=== PATIENT | male | born 1995 | race Caucasian/White ===

== ENCOUNTER 2020-01-13 21:22 | Emergency (ER) | payer SELFPAY ==
[2020-01-13 21:25] VITALS: BP 116/74; PULSE 69; RESP 18; TEMP 36.8; O2SAT 98; BMI 21.4
--- NOTE | 2020-01-13 21:31 | ECG_ITS ---
Measurements Intervals [place] Rate: 80 P: 62 OR: 174 QRS: 83 QRSD: 99 T: 58 QT: 384 QTc: 446 SINUS RHYTHM Compared to ECG 02/15/2017 18:16:36 No significant changes Electronically Signed On 01-14-2020 20:20:58 CDT by Sandie Irby M.D. [email or web address]
--- NOTE | 2020-01-13 21:32 | W.ED.ALCOHOL ---
HPI - Alcohol General: Chief Complaint: Alcohol Stated Complaint: etoh Time Seen by Provider: 01/13/20 21:23 Source: patient and EMS Mode of arrival: EMS Limitations: altered mental status (intoxicated) History of Present Illness: HPI narrative: Patient is a 24-year-old male who presents to ED today after being brought by EMS due to intoxication. In addition they state patient took 3 Xanax tablets. Patient is not sure who called EMS or why. He is clearly intoxicated on examination. Patient states he is not suicidal or homicidal. He is requesting to go home. 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 Amount of alcohol consumed: reports two 1/5 bottles of fireball Chronic alcohol use: No Previous visits for alcohol intoxication: No Recent trauma: No Associated symptoms: Reports no associated symptoms Treatments prior to arrival: none Review of Systems General: Reports: ROS unobtainable due to medical condition (intoxicated) FORMERLY [facility], [facility] ED PFSH: Social History Smoking and tobacco status: never smoked Physical Exam Const: COMMON NORMALS: patient oriented x3 and alert ORIENTATION/CONSCIOUSNESS: Yes oriented to person, Yes oriented to place and Yes oriented to time Resp: COMMON NORMALS: normal respiratory effort and clear to auscultation bilaterally AUSCULTATION: clear to auscultation bilaterally Cardio: COMMON NORMALS: regular rate and regular rhythm RATE: regular rate RHYTHM: regular rhythm Neuro: COMMON NORMALS: patient oriented x3 and moves all extremities SENSORIUM/ORIENTATION: Yes alert, Yes oriented to person, Yes oriented to place and Yes oriented to time OTHER: slurred speech secondary to intoxication Psych: COMMON NORMALS: denies hallucinations, denies homicidal ideation and denies suicidal ideation Skin: COMMON NORMALS: no rashes or lesions noted GENERAL SKIN EXAM: no rashes or lesions noted Course ED course: Patient is becoming increasingly belligerent-screaming and cussing at staff. Geodon was ordered on patient. Vital Signs: Vital signs: Vital Signs Temperature 98.2 F 01/13/20 21:25 Pulse Rate 69 01/13/20 21:25 Respiratory Rate 18 01/13/20 21:25 Blood Pressure 116/74 01/13/20 21:25 Pulse Oximetry 98 01/13/20 21:25 MDM - Alcohol MDM Narrative: Medical decision making narrative: Patient is not suicidal or homicidal. He is simply intoxicated. His tox screen is positive for marijuana which he admits to. At this time patient is resting comfortably/sleeping. He is stable for discharge whenever we can find a safe ride for him home. Lab Data: Labs: Lab Results 01/13/20 01/13/20 01/13/20 Range/Units 21:20 21:20 22:10 WBC 10.3 H (4.0-10.0) 10^3/ uL RBC 4.89 (4.1-5.3) 10^6/u L Hgb 15.0 (11.7-16.6) g/dL Hct 44.7 (42.0-52.0) % MCV 91.4 (80-94) fL MCH 30.7 (28.0-34.0) pg MCHC 33.6 (30.0-36.0) g/dL RDW 12.1 (12.1-15.1) % Plt Count 270 (130-400) 10^3/c mm MPV 11.2 H (7.4-10.4) fL Neut % (Auto) 54.0 % Lymph % (Auto) 37.5 % [place] % (Auto) 7.0 % Eos % (Auto) 0.7 % Baso % (Auto) 0.4 % Neut # (Auto) 5.6 (1.8-7.7) 10^3/u L Lymph # (Auto) 3.9 (0.8-4.8) 10^3/u L [place] # (Auto) 0.7 (0.2-0.9) 10^3/u L Eos # (Auto) 0.1 (0.0-0.8) 10^3/u L Baso # (Auto) 0.0 (0.0-0.1) 10^3/u L Nucleated RBC % (a uto) 0 % Nucleated RBCs # 0.0 /100WBC Sodium 147 H (136-145) mmol/L Potassium 3.8 (3.5-5.1) mmol/L Chloride 106 (98-107) mmol/L Carbon Dioxide 25 (22-29) mmol/L Anion Gap 19.8 H (5-19) BUN 10 (6-20) mg/dL Creatinine 1.0 (0.7-1.2) mg/dL GFR Calculation 92.6 (90-130) mL/min Glucose 107 (65-115) mg/dL Calculated Osmolal ity 300 H (285-295) mOsm/k g Calcium 9.7 (8.5-10.5) mg/dL Total Bilirubin 0.2 (0.15-1.2) mg/dL AST 20 (0-40) U/L ALT 23 (0-41) U/L Alkaline Phosphata se 51 (40-130) IU/L Total Protein 7.0 (6.6-8.7) g/dL Albumin 4.7 (3.5-5.2) g/dL Globulin 2.3 (1.3-4.6) g/dL Salicylates < 0.3 L (3-10) mg/dL Urine Opiates Scre en Negative (Negative) ng/mL Acetaminophen < 5.0 L (10-30) ug/mL Ur Barbiturates Sc reen Negative (Negative) ng/mL Ur Phencyclidine S crn Negative (Negative) ng/mL Ur Amphetamines Sc reen Negative (Negative) ng/mL U Benzodiazepines Scrn Negative (Negative) ng/mL Urine Cocaine Scre en Negative (Negative) ng/mL U Marijuana (THC) Screen Positive H (Negative) ng/mL Ethyl Alcohol 247 H (0-10) mg/dL EKG Data^: EKG 1: EKG interpretation date: 01/13/20 EKG interpretation time: 23:36 Interpretation: Sinus rhythm Rate [address] elevation or depression changes noted Discharge Plan Discharge Patient Disposition: Home, Self-Care Clinical Impression: Alcoholic intoxication Qualifiers: Complication of substance-induced condition: uncomplicated Qualified Code(s): F10.920 - Alcohol use, unspecified with intoxication, uncomplicated Condition: Stable Discharge Orders: Discharge Order (Routine); Ordered 01/14/20 Ordered By: Sheryl Doshi Patient Instructions: Alcohol Intoxication (ED), Abuse of Alcohol (ED) Coding Level of Care Code ED Blood Bank Coordinator for g Fwd Exam Detailed
[2020-01-13 21:39] LABS: Basophils % 0.4 %; Eosinophils # 0.1 10^3/uL (0.0-0.8); Eosinophils % 0.7 %; Hematocrit 44.7 % (42.0-52.0); Lymphocytes # 3.9 10^3/uL (0.8-4.8); Lymphocytes % 37.5 %; Mean Corpuscular HGB Conc 33.6 g/dL (30.0-36.0); Mean Corpuscular Hemoglobin 30.7 pg (28.0-34.0); Mean Corpuscular Volume 91.4 fL (80-94); Mean Platelet Volume 11.2 fL (7.4-10.4); Monocytes # 0.7 10^3/uL (0.2-0.9); Neutrophils # 5.6 10^3/uL (1.8-7.7); Nucleated Red Blood Cells % 0 %; Platelet Count 270 10^3/cmm (130-400); Red Blood Count 4.89 10^6/uL (4.1-5.3); Red Cell Distribution Width 12.1 % (12.1-15.1); White Blood Count 10.3 10^3/uL (4.0-10.0)
--- NOTE | 2020-01-13 21:48 | PC.NURSE ---
Pharmacy notified of new orders.
[2020-01-13 22:00] LABS: Alanine Aminotransferase 23 U/L (0-41); Albumin Level 4.7 g/dL (3.5-5.2); Alcohol Level 247 mg/dL (0-10); Alkaline Phosphatase 51 IU/L (40-130); Anion Gap 19.8 (5-19); Aspartate Amino Transferase 20 U/L (0-40); Blood Urea Nitrogen 10 mg/dL (6-20); Calcium 9.7 mg/dL (8.5-10.5); Carbon Dioxide 25 mmol/L (22-29); Chloride 106 mmol/L (98-107); Globulin 2.3 g/dL (1.3-4.6); Glomerular Filtration Rate 92.6 mL/min (90-130); Glucose 107 mg/dL (65-115); Osmolality Calculated 300 mOsm/kg (285-295); Potassium 3.8 mmol/L (3.5-5.1); Sodium 147 mmol/L (136-145); Total Bilirubin 0.2 mg/dL (0.15-1.2)
[2020-01-13 22:06] LABS: Acetaminophen < 5.0 ug/mL (10-30); Salicylate < 0.3 mg/dL (3-10)
[2020-01-13] MEDS: ziprasidone 20 mg/mL SDV 10 MG IM (22:09)
[2020-01-13 22:32] LABS: Amphetamines Screen Urine Negative (Negative); Barbiturates Screen Urine Negative (Negative); Benzodiazepines Screen Urine Negative (Negative); Cocaine Screen Urine Negative (Negative); Opiate Screen Urine Negative (Negative); PCP Screen Urine Negative (Negative); THC Screen Urine Positive (Negative)
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
[2020-01-13] MEDS: folic acid 1 MG, multivitamin inj 10 ML, thiamine 100 MG in sodium chloride 0.9% 1,000 ML 252.8 MG IV (23:37)
--- NOTE | 2020-01-14 00:38 | PC.NURSE ---
Patient continuing to rest at present time. IV infusing without difficulty.
[2020-01-14 01:12] VITALS: BP 110/60; PULSE 67; RESP 16; TEMP 36.6; O2SAT 95
== END 2020-01-14 01:14 | disposition home or self-care (01) ==
PROVIDERS: Emergency Provider Physician Assistant
DX: F10.920 Alcohol use, unspecified with intoxication, uncomplicated (principal)
CPT/HCPCS: 12345; 80053; 80306; 80307; 85025; 93005; 96365; 96366; 96372; 99283; 99284; J3411; J3486; J3490; J7030

== ENCOUNTER 2020-03-19 18:55 | Inpatient (IN) | payer SELFPAY ==
--- NOTE | 2020-03-19 18:58 | PC.NURSE ---
WHILE AT BEDSIDE PT KICKING AT STAFF AND GRABBING AT STAFF. PT IS UNCOOPERATIVE VERBAL DEESCALATION ATTEMPTED PT IS STILL UNCOOPERATIVE AND COMBATIVE. DR. MORFIN AT BEDSIDE VO WITH READ BACK FROM DR. MORFIN TO ADM 40MG IV KETAMINE PER EMS. EMS THEN ADM 40 MG IV KETAMINE TO PT.
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
[2020-03-19 19:08] VITALS: BP 144/94; PULSE 90; RESP 14; TEMP 37.1; O2SAT 100; BMI 22.9
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
[2020-03-19 19:20] LABS: Basophils % 0.3 %; Eosinophils # 0.2 10^3/uL (0.0-0.8); Hematocrit 45.9 % (42.0-52.0); Hemoglobin 15.7 g/dL (11.7-16.6); Lymphocytes # 1.9 10^3/uL (0.8-4.8); Lymphocytes % 19.1 %; Mean Corpuscular HGB Conc 34.2 g/dL (30.0-36.0); Mean Corpuscular Hemoglobin 31.5 pg (28.0-34.0); Mean Corpuscular Volume 92.2 fL (80-94); Mean Platelet Volume 10.6 fL (7.4-10.4); Monocytes # 0.6 10^3/uL (0.2-0.9); Monocytes % 6.2 %; Neutrophils # 7.03 10^3/uL (1.8-7.7); Neutrophils % 72.2 %; Nucleated Red Blood Cells % 0 %; Platelet Count 266 10^3/cmm (130-400); Red Blood Count 4.98 10^6/uL (4.1-5.3); Red Cell Distribution Width 12.8 % (12.1-15.1); White Blood Count 9.7 10^3/uL (4.0-10.0)
[2020-03-19 19:55] VITALS: BP 121/75; PULSE 87; RESP 12; O2SAT 100
[2020-03-19 19:55] LABS: Alanine Aminotransferase 29 U/L (0-41); Alcohol Level 267 mg/dL (0-10); Alkaline Phosphatase 72 IU/L (40-130); Anion Gap 21.4 (5-19); Aspartate Amino Transferase 40 U/L (0-40); Blood Urea Nitrogen 9 mg/dL (6-20); Calcium 9.5 mg/dL (8.5-10.5); Carbon Dioxide 22 mmol/L (22-29); Chloride 104 mmol/L (98-107); Globulin 2.1 g/dL (1.3-4.6); Glomerular Filtration Rate 104.6 mL/min (90-130); Glucose 116 mg/dL (65-115); Osmolality Calculated 295 mOsm/kg (285-295); Potassium 3.4 mmol/L (3.5-5.1); Sodium 144 mmol/L (136-145); Thyroid Stimulating Hormone 0.99 uIU/mL (0.27-4.20); Total Bilirubin 0.3 mg/dL (0.15-1.2); Total Protein 7.1 g/dL (6.6-8.7)
--- NOTE | 2020-03-19 19:56 | PC.NURSE ---
LEFT FOREARM WOUND DRESSED WITH 4X4 AND TELFA AND COBAN PRESSURE BANDAGE. PER DR. TURPIN'S VO.
--- NOTE | 2020-03-19 19:59 | PC.NURSE ---
IN AND OUT ROLLE USED TO OBTAIN URINE SPECIMEN VO RECEIVED FROM DR. TURPIN.
--- NOTE | 2020-03-19 20:02 | PC.NURSE ---
PER DR. GREENBERG VO PC TO PT MOTHER AND CONTACT DORA WADSWORTH. NO ANSWER LEFT MESSAGE TO RETURN PC TO THE ER.
[2020-03-19] MEDS: tetanus-dipt-pertussis 0.5 mL SDV IM (20:20)
[2020-03-19 20:21] LABS: Amphetamines Screen Urine Positive (Negative); Barbiturates Screen Urine Negative (Negative); Benzodiazepines Screen Urine Negative (Negative); Cocaine Screen Urine Negative (Negative); Opiate Screen Urine Negative (Negative); PCP Screen Urine Negative (Negative); THC Screen Urine Positive (Negative)
--- NOTE | 2020-03-19 20:58 | PC.NURSE ---
WHILE AT BESIDE PT IS YELLING HELL RIGHT, FUCK YEAH . PT IS ATTEMPTING TO GET OUT OF BED. VERBAL DEESCALATION ATTEMPTED PT WILL NOT FOLLOW DIRECTIONS.DR. TURPIN AT BEDSIDE VO WITH READ BACK TO ADM 40MG OF IV KETAMINE
[2020-03-19 21:03] VITALS: BP 149/90; PULSE 87; RESP 16; O2SAT 100
[2020-03-19 21:36] VITALS: PULSE 76; RESP 14; O2SAT 99
--- NOTE | 2020-03-19 22:04 | PC.NURSE ---
PROVIDER BETHANY SUTURING PT AT BEDSIDE.
[2020-03-19] MEDS: LORazepam 2 mg/mL INJ 1 mL 1 MG IVP (22:56)
--- NOTE | 2020-03-19 23:09 | PC.NURSE ---
Patient needs to Follow-Up with Dr. Brian at [facility] in [facility] ([phone]) as outpatient for his forearm injury after patient is discharged from our facility.
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
--- NOTE | 2020-03-19 23:20 | PC.NURSE ---
REPORT GIVEN TO CORINNA HINDS ASSUMED CARE.
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
[2020-03-20] VITALS (21 sets, daily range): BP systolic 101–142; BP diastolic 41–76; PULSE 67–114; RESP 15–22; TEMP 37.3–37.4; O2SAT 94–100
[2020-03-20] MEDS: ziprasidone 20 mg/mL SDV 40 MG IM (00:20)
[2020-03-20] MEDS: dexmedetomidine 400 MCG in sodium chloride 0.9% (100 ml) 100 ML IV (01:35)
--- NOTE | 2020-03-20 01:53 | PC.NURSE ---
Admit Note Patient arrived via ER bed with ER staff and security. x4 person assist into ICU bed. Vitals obtained. See assessment. Patient is sedated and unable to answer admission questions at this time. Also unable to swallow PO medications. Dr. Romero notified and ordered to hold for now. Zyprexa IM also held. Patient became agitated. Precedex drip started. Tolerating well at this time. resting comfortably. No S/S of distress.
[2020-03-20] MEDS: thiamine 100 mg Tablet PO (09:21)
[2020-03-20] MEDS: folic acid 1 mg Tablet PO (09:22)
[2020-03-20] MEDS: multivitamin therapeutic Tablet 1 TAB PO (09:22)
[2020-03-20 12:28] LABS: Basophils % 0.2 %; Eosinophils # 0.1 10^3/uL (0.0-0.8); Eosinophils % 0.9 %; Hematocrit 41.2 % (42.0-52.0); Hemoglobin 13.6 g/dL (11.7-16.6); Lymphocytes # 1.5 10^3/uL (0.8-4.8); Lymphocytes % 14.8 %; Mean Corpuscular Hemoglobin 30.9 pg (28.0-34.0); Mean Corpuscular Volume 93.6 fL (80-94); Mean Platelet Volume 10.4 fL (7.4-10.4); Monocytes # 0.8 10^3/uL (0.2-0.9); Monocytes % 7.5 %; Neutrophils # 7.61 10^3/uL (1.8-7.7); Neutrophils % 76.4 %; Nucleated Red Blood Cells % 0 %; Platelet Count 166 10^3/cmm (130-400); Red Cell Distribution Width 12.7 % (12.1-15.1)
[2020-03-20 12:41] LABS: Anion Gap 12.6 (5-19); Blood Urea Nitrogen 7 mg/dL (6-20); Carbon Dioxide 27 mmol/L (22-29); Chloride 101 mmol/L (98-107); Glucose 133 mg/dL (65-115); Magnesium 1.9 mg/dL (1.7-2.3); Osmolality Calculated 282 mOsm/kg (285-295); Potassium 3.6 mmol/L (3.5-5.1); Sodium 137 mmol/L (136-145)
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
--- NOTE | 2020-03-20 17:03 | PC.NURSE ---
visitor Mother at bedside with patient
--- NOTE | 2020-03-20 17:37 | PM.DCS ---
Discharge Providers Date of Admission: 03/19/20 23:25 Date of Discharge: March 20, 2020 Attending Provider at Admission: Luca Romero MD Attending Provider at Discharge: Alfred Alfaro MD Diagnoses at Discharge Discharge Diagnosis (1) Alcohol abuse: Status: Acute (2) Suicidal ideation: Status: Acute (3) Methamphetamine use: Status: Acute (4) Arm laceration: Status: Acute (5) Hypokalemia: Status: Acute Reason for Visit Reason for Visit: SI Hospital Course Hospital Course: Laron is a 24-year-old white male who presented to the emergency department with agitation, after sustaining a laceration to his left arm. In the emergency department there was concern of suicidal ideation. Laceration left arm had exposed muscle and tendon. The emergency department physician contacted orthopedics as well as hand surgeon and they recommended loose closure of wound, tetanus booster, outpatient follow-up with orthopedic hand surgery. Because of concern of suicidal ideation he was placed in the ICU initially. Precedex drip was started secondary to agitation. IV fluids were administered. On the morning of March 20 he was doing better and Precedex was discontinued. He was able to eat breakfast, and wound was examined by myself. This demonstrated sutures with no evidence of current infection. He complains of some numbness and pain. Numbness in the fingers and pain in the forearm where the laceration was. I contacted psychiatry to evaluate him. I confirmed an office appointment with the orthopedic hand surgeon in [place] on Tuesday. Psychiatry evaluated the patient and ultimately deemed that he was not a hazard to himself at this time and could be discharged. I discussed with the patient multiple times during the day regarding keeping the wound clean and dry, avoiding infection, signs of infection, avoiding alcohol and drugs, and that if follow-up is not kept and/or disability or loss of function of the arm permanently could occur. When I examined him in the afternoon he had no significant numbness of his hand. He was able to move all digits without difficulty. Dorsal surface of the hand was slightly swollen. He had excellent capillary refill. Plantar and dorsiflexion were intact as well as sensation. He reported the pain was significantly better as well. He was discharged into the care of his mother, and again reminded that he needs to keep his follow-up with orthopedic hand surgery on Tuesday and return for any concerns which were outlined in his discharge paperwork. Physical Exam Narrative: EXAM NARRATIVE: No apparent distress Cardiovascular regular rate and rhythm Lungs clear Abdomen is soft positive bowel sounds Extremities no cyanosis or clubbing. See exam and hospital course. Discharge Data Data Completed and Pending: Completed Studies During Hospitalization Category Date Time Status XR forearm LT 2V [id number] Stat Exams 03/19/20 19:16 Completed XR hand LT min 3V * [id number] Stat Exams 03/19/20 19:16 Completed Labs from last 24 hours 03/20/20 03/20/20 03/19/20 12:21 12:21 19:51 WBC 10.0 RBC 4.40 Hgb 13.6 Hct 41.2 L MCV 93.6 MCH 30.9 MCHC 33.0 RDW 12.7 Plt Count 166 MPV 10.4 Neut % (Auto) 76.4 Lymph % (Auto) 14.8 [place] % (Auto) 7.5 Eos % (Auto) 0.9 Baso % (Auto) 0.2 Neut # (Auto) 7.61 Lymph # (Auto) 1.5 [place] # (Auto) 0.8 Eos # (Auto) 0.1 Baso # (Auto) 0.0 Nucleated RBC % (a uto) 0 Nucleated RBCs # 0.0 Sodium 137 Potassium 3.6 Chloride 101 Carbon Dioxide 27 Anion Gap 12.6 BUN 7 Creatinine 0.6 L GFR Calculation 167.0 H Glucose 133 H Calculated Osmolal ity 282 L Calcium 9.0 Magnesium 1.9 Total Bilirubin AST ALT Alkaline Phosphata se Total Protein Albumin Globulin TSH Urine Opiates Scre en Negative Ur Barbiturates Sc reen Negative Ur Phencyclidine S crn Negative Ur Amphetamines Sc reen Positive H U Benzodiazepines Scrn Negative Urine Cocaine Scre en Negative U Marijuana (THC) Screen Positive H Ethyl Alcohol 03/19/20 03/19/20 18:20 18:20 WBC 9.7 RBC 4.98 Hgb 15.7 Hct 45.9 MCV 92.2 MCH 31.5 MCHC 34.2 RDW 12.8 Plt Count 266 MPV 10.6 H Neut % (Auto) 72.2 Lymph % (Auto) 19.1 [place] % (Auto) 6.2 Eos % (Auto) 2.0 Baso % (Auto) 0.3 Neut # (Auto) 7.03 Lymph # (Auto) 1.9 [place] # (Auto) 0.6 Eos # (Auto) 0.2 Baso # (Auto) 0.0 Nucleated RBC % (a uto) 0 Nucleated RBCs # 0.0 Sodium 144 Potassium 3.4 L Chloride 104 Carbon Dioxide 22 Anion Gap 21.4 H BUN 9 Creatinine 0.9 GFR Calculation 104.6 Glucose 116 H Calculated Osmolal ity 295 Calcium 9.5 Magnesium Total Bilirubin 0.3 AST 40 ALT 29 Alkaline Phosphata se 72 Total Protein 7.1 Albumin 5.0 Globulin 2.1 TSH 0.99 Urine Opiates Scre en Ur Barbiturates Sc reen Ur Phencyclidine S crn Ur Amphetamines Sc reen U Benzodiazepines Scrn Urine Cocaine Scre en U Marijuana (THC) Screen Ethyl Alcohol 267 H Vitals: Last Vital Signs Temp 99.4 F 03/20/20 01:15 Pulse 71 03/20/20 16:00 Resp 21 H 03/20/20 16:00 BP 111/65 03/20/20 16:00 Pulse Ox 98 03/20/20 10:00 Discharge Plan Discharge Patient Disposition: Home Condition: Stable Prescriptions: New cephalexin [Keflex] 500 mg capsule 500 mg PO TID 7 Days Qty: 21 RF: 0 Discharge Orders: Discharge Order (Routine); Ordered 03/20/20 Ordered By: Alfred Alfaro Referrals: Adrián Brian MD [Referring] - 03/24/20 10:15 am Discharge Diet: Regular Discharge Activity: Limit activity as instructed Activity Restrictions/Additional Instructions: Follow-up with your primary care provider in 3 to 5 days Take Keflex as prescribed Return immediately for any fever, worsening erythema, worsening pain, concerns of infection in the left arm Make sure you keep your follow-up with orthopedic hand surgery. Not doing so could lead to and/or permanent disability with loss of limb or function Do not use drugs or alcohol Avoid lifting with left hand, protect incision and keep dressing clean and dry. Change dressing daily and as needed, Telfa with Kerlix Discharge Attestations Time Spent in Discharge Care*: greater than 30 min Quality Metrics Clinical Quality Measures During this hospital stay, did patient experience: None Coding Level of Care Code Acute Division Order Technician for [facility] Fwd Diagnoses Alcohol abuse F10.10 Suicidal ideation R45.851 Methamphetamine use F15.10 Arm laceration S41.119A Hypokalemia E87.6
--- NOTE | 2020-03-20 18:10 | PC.NURSE ---
Addendum entered by Shona Arce RN 03/20/20 18:14: Suicide hotlines pointed out and discussed. Original Note: Discharge instructions provided: Special instruction to keep appt. Tuesday with hand specialist or it could result iN the loss of limb, disability or . Keflex discussed. Pt declined to go over any other carenotes about meth, alcohol abuse, lacerations, etc. Pt discharged.
--- NOTE | 2020-03-21 11:05 | PC.SOCIAL ---
Mother called Elyssa to inquire about pain medication for patient. This nurse sent to Dr Alfaro. At this time Dr Alfaro is not comfortable prescribing pain medication. Updated Mother that provider is not comfortable prescribing this since he is unable to monitor him. Mother states I can monitor him This nurse asked if he has tried Tylenol and if this provided any relief. Mother states Tylenol for his arm being gashed open? Thats Just Great. Tell him thank you very much! she then hung up phone. Updated Dr Alfaro.
== END 2020-03-20 18:10 | disposition home or self-care (01) | DRG 581 ==
LOC: ER 23:33 → ICU 03-20 05:15
PROVIDERS: Emergency Medicine; Admitting Provider Internal Medicine; Visit Provider Internal Medicine
DX: S41.112A Laceration without foreign body of left upper arm, initial encounter (principal); X78.0XXA Intentional self-harm by sharp glass, initial encounter; Y93.89 Activity, other specified; Y92.89 Other specified places as the place of occurrence of the external cause; F15.229 Other stimulant dependence with intoxication, unspecified; F17.210 Nicotine dependence, cigarettes, uncomplicated; Z91.5 Personal history of self-harm; F32.9 Major depressive disorder, single episode, unspecified; E87.6 Hypokalemia; F10.229 Alcohol dependence with intoxication, unspecified; Y90.8 Blood alcohol level of 240 mg/100 ml or more
CPT/HCPCS: 12345; 13121; 13122; 36415; 73090; 73130; 80048; 80053; 80306; 80307; 83735; 84443; 85025; 90471; 90715; 96372; 96375; 99284; J2060; J3411; J3486; J3490

== ENCOUNTER 2022-06-20 20:58 | Emergency (ER) | payer SELFPAY ==
[2022-06-20 21:12] VITALS: BMI 21.7
[2022-06-20 21:16] VITALS: BP 120/73; PULSE 85; RESP 16; TEMP 36.7; O2SAT 94
--- NOTE | 2022-06-20 21:18 | XRR_ITS ---
PROCEDURE INFORMATION: Exam: XR Right Forearm Exam date and time: 06/20/2022 9:29 PM Age: 26 years old Clinical indication: Injury or trauma; Fall; Blunt trauma (contusions or hematomas); Arm, lower; Right TECHNIQUE: Imaging protocol: Radiologic exam of the Right forearm. Views: 2 views. COMPARISON: No relevant prior studies available. FINDINGS: Bones/joints: Normal. Soft tissues: Normal. XR/XR forearm RT 2V [id number] IMPRESSION: No acute findings.
--- NOTE | 2022-06-20 21:18 | XRR_ITS ---
PROCEDURE INFORMATION: Exam: XR Right Humerus Exam date and time: 06/20/2022 9:27 PM Age: 26 years old Clinical indication: Injury or trauma; Fall; Blunt trauma (contusions or hematomas); Arm, upper; Right TECHNIQUE: Imaging protocol: Radiologic exam of the Right humerus. Views: 2 or more views. COMPARISON: No relevant prior studies available. FINDINGS: Bones/joints: Normal. Soft tissues: Normal. XR/[place] [id number] IMPRESSION: No acute findings.
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
[2022-06-20 22:44] VITALS: BP 117/76; PULSE 80; RESP 16; TEMP 36.7; O2SAT 98
== END 2022-06-20 22:21 | disposition home or self-care (01) ==
PROVIDERS: Emergency Provider Nurse Practitioner Family
DX: S49.91XA Unspecified injury of right shoulder and upper arm, initial encounter (principal); W17.89XA Other fall from one level to another, initial encounter
CPT/HCPCS: 73060; 73090; 96374; 99284; J3490

== ENCOUNTER 2024-03-23 14:43 | Inpatient (IN) | payer SELFPAY ==
[2024-03-23 14:44] VITALS: BP 113/85; PULSE 100; RESP 16; TEMP 36.5; O2SAT 97; BMI 21.4
--- NOTE | 2024-03-23 14:50 | ECG_ITS ---
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 Measurements Intervals [place] Rate: 93 P: 60 VA: 157 QRS: 69 QRSD: 99 T: 51 QT: 362 QTc: 451 Interpretive Statements SINUS RHYTHM Compared to ECG 01/13/2020 23:36:49 No significant changes Electronically Signed On 03-23-2024 19:58:33 CDT by Cathy Garner M.D. [id number]
--- NOTE | 2024-03-23 14:51 | W.ED.PSYCHS ---
HPI - Psych General: Chief Complaint: Psychiatric Symptoms Stated Complaint: SI Time Seen by Provider: 03/23/24 14:43 History of Present Illness: 28-year-old man who presents the emergency room with EMS with reports that he had a rope around his neck and was about to hang himself when the police arrived. He told ambulance personnel but he was going to kill himself and this was not worth bringing him in because he was going to do it 1 way or the other. Here he says to me that there is nothing wrong with him and he wants to leave. He seems quite a bit agitated. I have spoken with the police on the telephone about the patient. They say he was in a tree with a noose wrapped around his neck and was about to jump. Review of Systems General: Reports: ROS unobtainable due to medical condition and ROS unobtainable due to mental status Narrative: Constitutional symptoms: Negative except as documented in HPI. Skin symptoms: Negative except as documented in HPI. Eye symptoms: Negative except as documented in HPI. ENMT symptoms: Negative except as documented in HPI. Respiratory symptoms: Negative except as documented in HPI. Cardiovascular symptoms: Negative except as documented in HPI. Gastrointestinal symptoms: Negative except as documented in HPI. Genitourinary symptoms: Negative except as documented in HPI. Musculoskeletal symptoms: Negative except as documented in HPI. Neurologic symptoms: Negative except as documented in HPI. Psychiatric symptoms: Negative except as documented in HPI. Endocrine symptoms: Negative except as documented in HPI. [facility] ED PFSH: Medical History (Updated 03/23/24 @ 16:53 by Juliet Nath MD) Arm fracture Addiction Suicide attempt Major depressive disorder Drug overdose Overdose on Zoloft and clonazepam in the past 2016 Surgical History No pertinent past surgical history Family History Denies family history of Suicide Social History Smoking and tobacco/nicotine status: never used tobacco/nicotine Alcohol intake: current Alcohol type: hard liquor Substance/Drug Use: current Household members: significant other Physical Exam Narrative: EXAM NARRATIVE: General: Alert. no acute distress Skin: Warm, dry Head: Normocephalic, atraumatic. Neck: Supple, trachea midline. Eye: Extraocular movements are intact. Ears, nose, mouth and throat: Oral mucosa moist. Cardiovascular: Regular rate and rhythm, Normal peripheral perfusion. Respiratory: Lungs are clear to auscultation, respirations are non-labored, breath sounds are equal, Symmetrical chest wall expansion. Gastrointestinal: Soft, Nontender, Non distended, Normal bowel sounds. Musculoskeletal: Normal ROM, no deformity. Neurological: Not Alert and oriented to person, place, time, and situation, No focal neurological deficit observed. Psychiatric: , agitated but calms down later. He has denied suicidal ideation to me but from speaking with police and EMS this is not true.. Course Vital Signs: Vital signs: Vital Signs Temperature 97.7 F 03/23/24 14:44 Pulse Rate 100 03/23/24 14:44 Respiratory Rate 16 03/23/24 14:44 Blood Pressure 113/85 03/23/24 14:44 Pulse Oximetry 97 03/23/24 14:44 [facility] - Psych Medical Decision Making Medical decision making: Differential diagnosis for patient with reported suicide attempt and agitation with plan for psychiatric admission including but not limited to and based on the above HPI, review of systems and physical exam: concerns for infection, alcohol intoxication, cardiac issues or other medical problems prior to psychiatric admission. Orders placed to evaluate differential diagnosis based on the above differential, HPI and physical exam labwork, ekg ordered to evaluate the pathologies and to clear the patient medically prior to psychiatric admission EKG: Time 1502. Rate 93. Normal sinus rhythm, No ST-T changes, no ectopy, normal IN & QRS intervals, This was reviewed and interpreted by myself the ER physician at 1507 Lab Review: Laboratory results were reviewed and interpreted by myself the emergency room physician. - Medically cleared. - EKG shows no ischemic changes. -Salicylate and Tylenol are negative. ? Alcohol level was 200 ? Urinalysis and drug screen were pending. - No anemia. - BUN and creatinine are within normal limits. I reviewed the patient's medical record. Consultation: I spoke with Dr. Rollins who is on-call for psychiatry and he agrees to admission. Assessment and plan: Alcohol intoxication Alcohol abuse Suicidal ideation -Admission to neuropsychiatric unit for continued evaluation and treatment. - All lab work was reviewed and interpreted personally by myself, the ER physician - Evaluation and treatment of this problem were appropriate in the emergency setting Lab Data 03/23/24 15:12 03/23/24 15:12 Laboratory Results WBC 10.86 10^3/uL (3.29-11.43) 03/23/24 15:12 RBC 5.69 10^6/uL (3.85-5.65) H 03/23/24 15:12 Hgb 17.90 g/dL (11.27-16.99) H 03/23/24 15:12 Hct 54.2 % (37-53) H 03/23/24 15:12 MCV 95.3 fl (82-101) 03/23/24 15:12 MCH 31.5 pg (27-33) 03/23/24 15:12 MCHC 33.0 g/dL (30-55) 03/23/24 15:12 RDW 11.9 % (12.1-15.1) L 03/23/24 15:12 Plt Count 289 10^3/cmm (157-399) 03/23/24 15:12 MPV 10.2 fL (7.4-10.4) 03/23/24 15:12 Neut % (Auto) 64.6 % 03/23/24 15:12 Lymph % (Auto) 24.7 % 03/23/24 15:12 Rich % (Auto) 7.5 % 03/23/24 15:12 Eos % (Auto) 2.2 % 03/23/24 15:12 Baso % (Auto) 0.5 % 03/23/24 15:12 Neut # (Auto) 7.03 10^3/uL (1.8-7.7) 03/23/24 15:12 Lymph # (Auto) 2.7 10^3/uL (0.8-4.8) 03/23/24 15:12 Rich # (Auto) 0.8 10^3/uL (0.2-0.9) 03/23/24 15:12 Eos # (Auto) 0.2 10^3/uL (0.0-0.8) 03/23/24 15:12 Baso # (Auto) 0.1 10^3/uL (0.0-0.1) 03/23/24 15:12 Nucleated RBC % (auto) 0 % 03/23/24 15:12 Nucleated RBCs # 0.0 /100WBC 03/23/24 15:12 Sodium 142 mmol/L (136-145) 03/23/24 15:12 Potassium 3.9 mmol/L (3.5-5.1) 03/23/24 15:12 Chloride 104 mmol/L (98-107) 03/23/24 15:12 Carbon Dioxide 21 mmol/L (22-29) L 03/23/24 15:12 Anion Gap 20.9 (5-19) H 03/23/24 15:12 BUN 17 mg/dL (6-20) 03/23/24 15:12 Creatinine 1.0 mg/dL (0.7-1.2) 03/23/24 15:12 GFR Calculation 89.6 mL/min (90-130) L 03/23/24 15:12 Glucose 108 mg/dL (65-115) 03/23/24 15:12 Calculated Osmolality 296 mOsm/kg (285-295) H 03/23/24 15:12 Calcium 9.3 mg/dL (8.5-10.5) 03/23/24 15:12 Total Bilirubin 0.4 mg/dL (0.15-1.2) 03/23/24 15:12 AST 26 U/L (0-40) 03/23/24 15:12 ALT 33 U/L (0-41) 03/23/24 15:12 Alkaline Phosphatase 76 U/L (40-130) 03/23/24 15:12 Total Protein 7.8 g/dL (6.6-8.7) 03/23/24 15:12 Albumin 4.9 g/dL (3.5-5.2) 03/23/24 15:12 Globulin 2.9 g/dL (1.3-4.6) 03/23/24 15:12 TSH 1.06 uIU/mL (0.27-4.20) 03/23/24 15:12 Salicylates < 0.3 mg/dL (3-10) L 03/23/24 15:12 Acetaminophen < 5.0 ug/mL (10-30) L 03/23/24 15:12 Ethyl Alcohol 200 mg/dL (0-10) H 03/23/24 15:12 No radiology studies performed this visit Discharge Plan Discharge Patient Disposition: Admitted As Inpatient Clinical Impression: Alcohol intoxication, Alcohol abuse, Suicidal ideation Condition: Stable Coding Level of Care Code ED [employer] for Renate Walker
[2024-03-23] MEDS: water for injection-sterile 10 ML 2 ML (15:27)
[2024-03-23] MEDS: ziprasidone 20 mg/mL SDV IM (15:27)
[2024-03-23 15:28] LABS: Basophils # 0.1 10^3/uL (0.0-0.1); Basophils % 0.5 %; Eosinophils # 0.2 10^3/uL (0.0-0.8); Eosinophils % 2.2 %; Hematocrit 54.2 % (37-53); Lymphocytes # 2.7 10^3/uL (0.8-4.8); Lymphocytes % 24.7 %; Mean Corpuscular Hemoglobin 31.5 pg (27-33); Mean Corpuscular Volume 95.3 fl (82-101); Mean Platelet Volume 10.2 fL (7.4-10.4); Monocytes # 0.8 10^3/uL (0.2-0.9); Monocytes % 7.5 %; Neutrophils # 7.03 10^3/uL (1.8-7.7); Neutrophils % 64.6 %; Nucleated Red Blood Cells % 0 %; Platelet Count 289 10^3/cmm (157-399); Red Blood Count 5.69 10^6/uL (3.85-5.65); Red Cell Distribution Width 11.9 % (12.1-15.1); White Blood Count 10.86 10^3/uL (3.29-11.43)
[2024-03-23] MEDS: LORazepam 2 mg/mL INJ 1 mL IM (15:28)
[2024-03-23 16:05] LABS: Alanine Aminotransferase 33 U/L (0-41); Albumin Level 4.9 g/dL (3.5-5.2); Alcohol Level 200 mg/dL (0-10); Alkaline Phosphatase 76 U/L (40-130); Aspartate Amino Transferase 26 U/L (0-40); Blood Urea Nitrogen 17 mg/dL (6-20); Calcium 9.3 mg/dL (8.5-10.5); Carbon Dioxide 21 mmol/L (22-29); Chloride 104 mmol/L (98-107); Creatinine Clr Calc Pharmacy 107.8654; Globulin 2.9 g/dL (1.3-4.6); Glomerular Filtration Rate 89.6 mL/min (90-130); Glucose 108 mg/dL (65-115); Osmolality Calculated 296 mOsm/kg (285-295); Sodium 142 mmol/L (136-145); Thyroid Stimulating Hormone 1.06 uIU/mL (0.27-4.20); Total Bilirubin 0.4 mg/dL (0.15-1.2); Total Protein 7.8 g/dL (6.6-8.7)
[2024-03-23 16:08] LABS: Acetaminophen < 5.0 ug/mL (10-30); Anion Gap 20.9 (5-19); Potassium 3.9 mmol/L (3.5-5.1); Salicylate < 0.3 mg/dL (3-10)
[2024-03-23 18:15] VITALS: BP 113/66; PULSE 76; RESP 12; TEMP 36.6; O2SAT 97
--- NOTE | 2024-03-23 18:29 | PC.NURSE ---
Emergency room nurse, Bipin, gave this RN report at 1744. She stated that Mr. Archer was brought in by EMS from [place], [place]. Patient says it was reported that he was found hanging with a rope around his neck. She says it does not appear he was there long because he has abrasions that are very superficial to his neck. This RN observed the abrasions on his neck and it doesn't appear that they need any medical care. It was also reported that he had a BAL of 200 when he arrived. She says they were unable to obtain a urine specimen from the patient. RN reported that he also received ativan 2mg IM and geodon 20mg IM. Patient arrived to the unit on a gurney, unconscious. This RN attempted to rouse the patient, both by verbal and touch, without any success. Patient was observed to have shallow breathing. This was all reported to Dr. Rollins, charge nurse (Carito), and tobacco warehouse manager (Betty).
[2024-03-23 21:08] VITALS: BP 96/88; PULSE 76; RESP 15; O2SAT 97
[2024-03-23 23:58] VITALS: RESP 14
--- NOTE | 2024-03-23 23:58 | PC.NURSE ---
unable to obtain 0000 vital signs. respiration rate 14. charge poster notified.
[2024-03-24 04:00] VITALS: BP 103/73; PULSE 60; RESP 16; O2SAT 95
--- NOTE | 2024-03-24 07:42 | P.NPUHP_ITS ---
Providers/Chief Complaint 2 Admitting Physician: Eugene Rollins MD Chief Complaint: SI HPI NPU History of Present Illness Laron Archer is a 28 year old male who presented to the emergency department with the following report: Chief Complaint: Psychiatric Symptoms Stated Complaint: SI Time Seen by Provider: 03/23/24 14:43 History of Present Illness: 28-year-old man who presents the emergency room with EMS with reports that he had a rope around his neck and was about to hang himself when the police arrived. He told ambulance personnel but he was going to kill himself and this was not worth bringing him in because he was going to do it 1 way or the other. Here he says to me that there is nothing wrong with him and he wants to leave. He seems quite a bit agitated. I have spoken with the police on the telephone about the patient. They say he was in a tree with a noose wrapped around his neck and was about to jump. He was admitted to the neuropsychiatric unit for definitive treatment of those issues. He presents today reporting that everything in his life is messed up. When I was attempting to get an understanding the situation he reported that things were problematic in all domains of his life. He initially presented with frustration and being angry about not being able to leave but as we began to discuss the situation he was able to appreciate that there would be no reason why anyone would allow him to leave as he continued after admission to endorse suicidality. He continued in the same talking about or asking have to live for. We discussed our last encounter in the ICU and he does report that he did go to [place] and have the surgery on his arm. He has a significant scar but reports that he is not struggling with functionality. He endorsed having challenges financially, and relationships, with work etc. We discussed the risks, benefits and alternatives of initiating Prozac and he understood and agreed to proceed as is documented in this note. Per his 03/20/2020 [facility] inpatient psychiatric consultation: History of Present Illness Laron Archer is a 24 year old male who presented to the emergency room after injuring himself putting his hand through a window and causing severe injuries to his left arm. In the emergency room they may repairs but determined that the ultimate repair his hand needed to be carried out by a hand surgeon. He was admitted to the ICU for definitive treatment of his issues and injuries. Which included being on methamphetamines and having altered mental status. I had to opportunities to speak with Ramana once earlier in the day before noon and then after his mother arrived. He showed no signs of aggression or agitation upon awakening. He received the information about the severity of his injury was necessary and reported from the very first moment that he would do the things were necessary to get to that appointment and that his mother is his support system. The treatment team reached out to his mother and she agreed to come down so that we can speak about how to best manage his situation and so we were certain that they both understood the gravity of his injuries and how important making at 10:15 appointment is to the ongoing normal functioning of his arm. There were no signs from either mom or Ramana that they had any confusion about the danger of him not making that appointment. Mom endorses having a plan to sequester him and then be the one that delivers him to that appointment on Tuesday. Additionally reported that he does not have a car to get around on his own and that she is his source of transportation. He showed no signs of altered mental status upon the second meeting and was able to contract for safety denying all lethality, denying depression and endorsing full understanding of the circumstance he finds himself in. He has 2 previous psychiatric inpatient stays at [facility] in the months after the of his father from substance abuse complications. Outside of that. He's had no inpatient hospitalizations and had had no inpatient hospitalizations prior to that for November 2016 hospitalization about 3 months after his father's . His mother reported that he is a real challenge for her as he has struggled since that time but she reported confidence that she would be able to assist him over the next several days prior to his appointment with a hand surgeon. Psychiatric history: As above. Substance abuse history: He smokes cigarettes regularly and has had some issues with methamphetamine addiction. Family history: He endorses mental health issues and addiction issues throughout his family. He reports his father from complications of substance abuse. Developmental history: He denies any significant issues with or delivery. No developmental issues, speech therapy, learning support, [employer] for special education classes reported. Psychosocial history: Reports that his parents were together when he was born in his mother is one of the significant supports. He is a heterosexual and has been and . He has a daughter who spends the majority of her time with his mom. Meds NPU Home Medications Medication Instructions Recorded Confirmed Last Taken Type ibuprofen 600 mg tablet 600 mg PO Q6H PRN pain #30 tabs 06/20/22 03/23/24 Unknown Rx Allergies Allergy/AdvReac Type Severity Reaction Status Date / Time No Known Allergies Allergy Verified 01/13/20 22:09 PFSH NPU 2 PFSH: Medical History (Updated 03/26/24 @ 05:45 by Eugene Rollins MD) Arm fracture Addiction Suicide attempt Major depressive disorder Drug overdose Overdose on Zoloft and clonazepam in the past 2016 Surgical History No pertinent past surgical history Family History Denies family history of Suicide Social History Smoking and tobacco/nicotine status: never used tobacco/nicotine Alcohol intake: current Alcohol type: hard liquor Substance/Drug Use: current Household members: significant other Mental Status Exam 2 MSE Comments: This is a well-nourished well-developed white male in hospital scrubs with limited grooming and adequate eye contact. No abnormal movements except for psychomotor retardation. Cooperative with exam in moderate distress. Speech was slightly decreased rate and volume. Mood described as depressed, affect congruent. Thought process organized. Thought content: Patient endorsed suicidal but denied homicidal ideations, there were no delusions reported are noted, he denied any auditory or visual hallucinations. Attention and concentration were intact and memory appeared reliable but none were formally tested. He is alert and oriented ?3. Insight, judgment and impulse control are impaired. Vitals/I&O/Wt Last Vital Signs Temp 97.8 F 03/23/24 18:15 Pulse 60 03/24/24 04:00 Resp 16 03/24/24 04:00 BP 103/73 03/24/24 04:00 Pulse Ox 95 03/24/24 04:00 O2 Del Method Room Air 03/24/24 04:00 03/23/24 03/24/24 03/24/24 22:59 06:59 14:59 Intake Total Balance Weight last 48 hrs Weight 65.771 kg Data NPU 03/23/24 15:12 03/23/24 15:12 A&P Assessment and plan (1) Alcohol abuse: (2) Methamphetamine use: (3) Alcohol intoxication: (4) Suicidal ideation: (5) Major depressive disorder, recurrent: (6) Bereavement: Plan This is a 28year-old white male with a history of depression and suicidal thinking previously most prominently against the backdrop of the of his father with issues with bereavement and addiction who presents with overwhelming suicidal thoughts and a recent active furtherance by attempting to hang himself with continued alcohol use disorder as well as methamphetamine use in addition to his mood issues. 1. Consider starting Prozac 20 mg p.o. daily. 2. Encourage individual, group and milieu therapy. 3. Continue every 15 minute checks for safety. 4. Initiate CIWA protocol. 5. Encourage sober living treatment after discharge advise level care to which he is willing to commit. 6. Evaluate for safety for discharge given 96-hour hold and significant suicide attempts. Attestations NPU 2 Medical Necessity Statement*: Inpatient hospitalization is medically necessary and the clinically appropriate intervention at this time. We will monitor/initiate medications and make changes as indicated. He will be in the hospital for over 2 midnights. Likely length of stay 4 to 6 days. Coding Level of Care Code Acute Code for [facility] Fwd Diagnoses Alcohol abuse F10.10 Methamphetamine use F15.10 Alcohol intoxication F10.929 Suicidal ideation R45.851 Major depressive disorder, recurrent F33.9 Bereavement Z63.4
[2024-03-24 08:00] VITALS: BP 122/78; PULSE 74; RESP 20; TEMP 36.6; O2SAT 98
--- NOTE | 2024-03-24 08:57 | PC.NURSE ---
UP TO NURSES STATION DEMANDING I LEAVE NOW AND TALK TO THE DRSony WHERE THE HELL IS HE SO I CAN GET OUT OF HERE. PT WAS EDUCATED ON 96 HOUR HOLD AND PROCESS. PT STATES HE KNOWS WHAT THAT MEANS. PT WAS COPIED OFF HIS 96 HOUR HOLD PAPER WITH ALL INFORMATION ON IT ALONG WITH HIS PT RIGHTS. ASSESSMENT WAS COMPLETED BUT PT S NOTED TO BE ANXIOUS, AGITATED AND EVASIVE. PT DENIES SI/HI AND AVH AT THIS TIME. RATES ANXIETY 06/07 AND DEPRESSION 05/08. DENIES PAIN. REPORTS HE SLEPT GOOD BUT MADE STATEMENTS THAT THE ER GAVE ME SHIT AND I'VE BEEN SLEEPING SINCE. 0830 AM NEW ORDERS WERE RECEIVED TO PLACE ON ONE ON ONE OBSERVATION DUE TO ACTIVE SUICIDAL THOUGHTS AND PT MADE STATEMENTS PREVIOUSLY THAT HE WAS GOING TO KILL HIMSELF EITHER NOW OR LATER, SO ORDERS WERE RECEIVED. PT WAS DRESSED OUT INTO NPU SCRUBS DUE TO BEING IN PAPER SCRUBS SINCE ADMISSION DUE TO INCREASED SEDATION AND JUST NOW WAKING UP. BRUISING NOTED TO BILATERAL ARMS THAT WERE SCATTERED. PT IS NEGATIVE, IMPULSIVE AND IRRITABLE BUT ABLE TO VERBALLY REDIRECT. ALL QUESTIIONS ANSWERED AND SUPPORT VOICED.
[2024-03-24] MEDS: nicotine 2 mg Gum BUCCAL (14:38)
[2024-03-24] MEDS: folic acid 1 mg Tablet PO (14:38)
[2024-03-24] MEDS: LORazepam 2 mg Tablet PO ×2 (14:38→19:19)
[2024-03-24] MEDS: multivitamin therapeutic Tablet 1 TAB PO (14:38)
[2024-03-24] MEDS: thiamine 100 mg Tablet PO (14:38)
[2024-03-24 14:41] VITALS: BP 126/77; PULSE 77; RESP 18; TEMP 37.1; O2SAT 99
[2024-03-24 14:44] VITALS: BP 126/77; PULSE 77; RESP 18; TEMP 37.1; O2SAT 99
--- NOTE | 2024-03-24 15:00 | PC.NURSE ---
Addendum entered by Marielos Frazier RN 03/25/24 14:32: 96 hr rights reviewed on 03/23/24 @1500 Original Note: 96 hr rights reviewed with patient @1500 wiht assistance of [facility] security program manager Antonio. All education reviewed. Patient verbalized understanding but also stated to this HS that it did not matter how long we kept, because he would do it again when discharged . HS reported this to the charge nurse in NPU. Patient copy was left @bedside with patient. Patient also provided a sandwich and soda.
--- NOTE | 2024-03-24 17:32 | PC.ADMIT ---
[address] Admission Note: The patient,Laron Archer,28 y/o, was given written information regarding hospital policies, unit procedures and contact persons. Patient's smoking status: never smoked. Vital Signs - 8 hr 03/24/24 14:41 03/24/24 14:44 Temperature 98.8 F 98.8 F Pulse Rate 77 77 Respiratory Rate 18 18 Blood Pressure 126/77 126/77 Pulse Oximetry 99 99 Oxygen Delivery Method Room Air PT IS EVASIVE WITH ASSESSMENT AND DOES NOT WANT TO ANSWER QUESTIONS. PT ON [facility] PROTOCOL FOR ALCOHOL WITHDRAWAL DUE TO HAVING BAL OF 200 ON ADMISSION. PT HAS RECEIVED ONE DOSE OF ATIVAN 2 G EARLIER IN THE SHIFT. ONE ON ONE OBSERVATIONS CONTINUES FOR SUICIDAL STATEMENTS AND RECENT SUICIDAL ATTEMPT. LAW ENFORCEMENT BROUGHT IN DUE TO SUICIDAL ATTEMPT OF HANGING AND PT WAS CUT DOWN BY LAW ENFORCEMENT. PT HAS DONE WELL TODAY WITH ONE ON ONE OBSERVATION AND CONTINUES TO STATE HE IS NOT SUICIDAL DENYING SUICIDAL IDEATIONS. ALSO DENIES HI AND AVH AT THIS TIME. PT IS OBSERVED HAVING A FLAT AFFECT DEPRESSED MOOD. UDS +FOR THC. WHEN RN ATTEMPTED TO COMPLETE SUBSTANCE ABUSE ASSESSMENT PT STATED HE DOES NOT USE DRUGS OR ALCOHOL. RN DID NOT ATTEMPT TO PUSH PT OR DISPUTE HIS ANSWER. ORIENTATED TO UNIT, SAFETY RULLES AND GUIDELINES. ALL QUESTIONS ANSWERED AND SUPPORT WAS VOICED. DENIES PAIN.
[2024-03-24 19:59] VITALS: BP 114/75; PULSE 75; RESP 17; TEMP 36.8; O2SAT 99
[2024-03-24 23:52] VITALS: RESP 14
[2024-03-25 04:00] VITALS: BP 100/64; PULSE 65; RESP 16; O2SAT 100
[2024-03-25 08:00] VITALS: BP 122/75; PULSE 73; RESP 20; TEMP 36.4; O2SAT 99
[2024-03-25] MEDS: thiamine 100 mg Tablet PO (10:08)
[2024-03-25] MEDS: folic acid 1 mg Tablet PO (10:08)
[2024-03-25] MEDS: multivitamin therapeutic Tablet 1 TAB PO (10:08)
[2024-03-25] MEDS: nicotine 2 mg Gum BUCCAL (10:52)
[2024-03-25] MEDS: acetaminophen 325 mg Tablet 650 MG PO (11:37)
[2024-03-25] MEDS: LORazepam 2 mg Tablet PO (11:38)
[2024-03-25 12:00] VITALS: BP 121/75; PULSE 86; RESP 20; TEMP 36.7; O2SAT 99
[2024-03-25 16:00] VITALS: BP 124/74; PULSE 88; RESP 16; TEMP 36.6; O2SAT 95
[2024-03-25] MEDS: OLANZapine 5 mg ODT PO (16:33)
--- NOTE | 2024-03-25 16:34 | PC.NURSE ---
PATIENT AT THE WINDOW REQUESTING MEDICATION TO KNOCK ME OUT, I WANNA GO TO SLEEP. PATIENT NOT SCORING HIGH ENOUGH ON CIWA FOR ATIVAN. ADMINISTERED ZYPREXA 5MG ODT TO PATIENT FOR ANXIETY/AGITATION PATIENT RATES 7/10. PATIENT STATED TO THIS NURSE THAT HE WANTS A TRANQUILIZER OR SOMETHING SO HE CAN GO TO SLEEP. THIS NURSE INFORMED PATIENT THAT WE DON'T GIVE SLEEP MEDICATIONS DURING THE DAY. PATIENT IRRITABLE.
--- NOTE | 2024-03-25 16:51 | P.NPUPN_ITS ---
Subjective NPU 2 Subjective: Patient is a 28-year-old male admitted involuntarily with threats to kill himself by hanging. He has a past history of methamphetamine use and continue to report feeling agitated. He had ported that he wished to get back on his medication that he had used treat his ADHD as an child. Patient had reported having problems with sustaining attention throughout his life. He had reported continued use of alcohol. The patient had a blood alcohol level of 200. Patient reported some struggles with another peer on the unit and he had appeared agitated towards another patient but did not engage in any physical altercation with this other patient. Patient had reported struggles with sleep. He had reported intermittent periods of depression. Mental Status Exam 2 MSE Comments: This is a well-nourished well-developed white male with adequate eye contact but in a hospital gown with limited grooming. No abnormal movements except for signficant psychomotor agitation. He was minimally cooperative with exam today in no acute distress. Speech was slightly decreased in rate and volume. Mood described as frustrated. His affect was irritable and hostile. Thought process was organized. Thought content: Patient denied any suicidal or homicidal ideations, there were no delusions reported are noted, he denied any auditory or visual hallucinations. There was some evidence of paranoia. Attention and concentration were intact and memory appeared reliable but none were formally tested. He is alert and oriented ?3. Insight and judgment are poor. His impulse control is limited. Vitals/I&O/Wt Last Vital Signs Temp 98 F 03/25/24 16:00 Pulse 88 03/25/24 16:00 Resp 16 03/25/24 16:00 BP 124/74 03/25/24 16:00 Pulse Ox 95 03/25/24 16:00 O2 Del Method Room Air 03/25/24 16:00 Weight last 48 hrs Weight 67.132 kg Data NPU 03/23/24 15:12 03/23/24 15:12 A&P Assessment and plan (1) Suicidal ideation: (2) Depression, unspecified: (3) Methamphetamine use: (4) Alcohol abuse: Plan This is a 24-year-old white male with a history of depression and suicidal thinking most prominently against the backdrop of the of his father with some previous issues with bereavement and addiction who presents with an injury that was sustained during active intoxication with no reported lethality at this time. 1. Will monitor for ETOH withdrawal symptoms, continue CIWA. Consider prozac for depression. 2. Encourage outpatient follow-up for mental health/addiction services. 3. Still appears irritable, consider mood stabilizer. Involuntary Hold Information 2 96 Hour Hold: 96 Hour Involuntary Admission: Yes 96 Hour Hold Ending Date: 03/29/24 96 Hour Hold Ending Time: 14:50 Attestations NPU 2 Medical Necessity Statement*: Inpatient hospitalization is medically necessary and deemed to be the clinically appropriate intervention at this time.? Medications will be initiated and adjusted as clinically indicated.? The patient?s likely length of stay is 5-7 days.? Coding Level of Care Code Acute Code for [facility] Fwd Diagnoses Suicidal ideation R45.851 Depression, unspecified F32.A Methamphetamine use F15.10 Alcohol abuse F10.10
[2024-03-25] MEDS: hyDROXYzine 25 mg Capsule 50 MG PO (16:53)
--- NOTE | 2024-03-25 17:25 | PC.NURSE ---
while outside on patio pt stated to Mary what would happen if I escaped?' he was informed by staff he would just be brought back to unit. at that time pt stated he did not want to escape now he wanted to do it after dinner. upon crossing back to [facility] pt pulled cover off of fire alarm laughing and smiling when staff responded to alarm. this academic affairs specialist instructed pt that the alarm is not to be played with. to keep hands off unless it is an emergency.
[2024-03-25 20:00] VITALS: BP 115/73; PULSE 80; RESP 18; TEMP 36.9; O2SAT 99
[2024-03-26] VITALS: RESP 16
[2024-03-26] MEDS: acetaminophen 325 mg Tablet 650 MG PO (02:44)
[2024-03-26] MEDS: hyDROXYzine 25 mg Capsule 50 MG PO (02:44)
--- NOTE | 2024-03-26 02:52 | PC.NURSE ---
Pt frederick- [facility] tech placed fall risk corina on left side of Pt's bed and this RN provided Pt with yellow color coded skid free socks and asked him if we could change his light blue ones out. He said yes but did not allow this task to be completed right away. These specific fall risk socks are left in room so this task can be completed as soon as possible. Pt verbalizes and understanding of this information. 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 This RN made a snack time exception rule so that Pt could help to safely tolerate his PO medications that I had just administered post his CIWA withdraw assessment completion.
[2024-03-26 03:08] VITALS: PULSE 41; RESP 22; O2SAT 96
[2024-03-26 07:59] VITALS: BP 81/44; PULSE 80; RESP 16; O2SAT 98
[2024-03-26] MEDS: folic acid 1 mg Tablet PO (08:51)
[2024-03-26] MEDS: multivitamin therapeutic Tablet 1 TAB PO (08:51)
[2024-03-26] MEDS: thiamine 100 mg Tablet PO (08:51)
[2024-03-26] MEDS: fluoxetine 20 mg Capsule PO (08:51)
--- NOTE | 2024-03-26 09:00 | PC.NURSE ---
Patient came to nurses' station, cutting in line in front of other patients. A staff member asked him to wait a moment for staff to help the other patients until it was his turn. He lifted his arms, agitated, and stormed back to his room. This RN went to talk to him and do his morning assessment. When asked what was wrong he stated, I just want my fucking meds. This RN told him we would give him his medications, but that we had to help all patients. He then said, you can really help me by just letting me the fuck out of here. This RN informed him that the nursing staff does not make these decisions and that only the doctor can make the decision to release him. When asked if he still felt suicidal or depressed he stated that he was depressed because he was here. He then said, you can leave. I'm done fucking talking to you. This RN left his room and told him that if he would like to talk later to let staff know.
[2024-03-26 11:51] VITALS: BP 112/68; PULSE 59; RESP 16; O2SAT 99
--- NOTE | 2024-03-26 13:15 | PC.NURSE ---
ORDERS RECEIVED TO DISCONTINUE URINE DRUG SCREEN, UA AND CIWA PROTOCOL. V/S Q [address] OF Q 4 HOURS. PT EDUCATED ON NEW. ORDERS WERE RECEIVED TO CANCEL UDS AND UA DUE TO PT CONTINUED REFUSAL. SUPPORT VOICED.
[2024-03-26 13:20] VITALS: BP 112/68; PULSE 59; RESP 16; O2SAT 99
--- NOTE | 2024-03-26 15:18 | W.PM.NPUDCS ---
Diagnoses at Discharge Discharge Diagnosis (1) Alcohol abuse: Status: Acute (2) Methamphetamine use: Status: Acute (3) Alcohol intoxication: Status: Acute (4) Suicidal ideation: Status: Acute (5) Major depressive disorder, recurrent: Status: Acute (6) Bereavement: Status: Acute Reason for Visit Reason for Visit: SI Brief History: History of Present Illness Laron Archer is a 28 year old male who presented to the emergency department with the following report: Chief Complaint: Psychiatric Symptoms Stated Complaint: SI Time Seen by Provider: 03/23/24 14:43 History of Present Illness: 28-year-old man who presents the emergency room with EMS with reports that he had a rope around his neck and was about to hang himself when the police arrived. He told ambulance personnel but he was going to kill himself and this was not worth bringing him in because he was going to do it 1 way or the other. Here he says to me that there is nothing wrong with him and he wants to leave. He seems quite a bit agitated. I have spoken with the police on the telephone about the patient. They say he was in a tree with a noose wrapped around his neck and was about to jump. He was admitted to the neuropsychiatric unit for definitive treatment of those issues. He presents today reporting that everything in his life is messed up. When I was attempting to get an understanding the situation he reported that things were problematic in all domains of his life. He initially presented with frustration and being angry about not being able to leave but as we began to discuss the situation he was able to appreciate that there would be no reason why anyone would allow him to leave as he continued after admission to endorse suicidality. He continued in the same talking about or asking have to live for. We discussed our last encounter in the ICU and he does report that he did go to [facility] and have the surgery on his arm. He has a significant scar but reports that he is not struggling with functionality. He endorsed having challenges financially, and relationships, with work etc. We discussed the risks, benefits and alternatives of initiating Prozac and he understood and agreed to proceed as is documented in this note. Per his 03/20/2020 [facility] inpatient psychiatric consultation: History of Present Illness Laron Archer is a 24 year old male who presented to the emergency room after injuring himself putting his hand through a window and causing severe injuries to his left arm. In the emergency room they may repairs but determined that the ultimate repair his hand needed to be carried out by a hand surgeon. He was admitted to the ICU for definitive treatment of his issues and injuries. Which included being on methamphetamines and having altered mental status. I had to opportunities to speak with Ramana once earlier in the day before noon and then after his mother arrived. He showed no signs of aggression or agitation upon awakening. He received the information about the severity of his injury was necessary and reported from the very first moment that he would do the things were necessary to get to that appointment and that his mother is his support system. The treatment team reached out to his mother and she agreed to come down so that we can speak about how to best manage his situation and so we were certain that they both understood the gravity of his injuries and how important making at 10:15 appointment is to the ongoing normal functioning of his arm. There were no signs from either mom or Ramana that they had any confusion about the danger of him not making that appointment. Mom endorses having a plan to sequester him and then be the one that delivers him to that appointment on Tuesday. Additionally reported that he does not have a car to get around on his own and that she is his source of transportation. He showed no signs of altered mental status upon the second meeting and was able to contract for safety denying all lethality, denying depression and endorsing full understanding of the circumstance he finds himself in. He has 2 previous psychiatric inpatient stays at [facility] in the months after the of his father from substance abuse complications. Outside of that. He's had no inpatient hospitalizations and had had no inpatient hospitalizations prior to that for November 2016 hospitalization about 3 months after his father's . His mother reported that he is a real challenge for her as he has struggled since that time but she reported confidence that she would be able to assist him over the next several days prior to his appointment with a hand surgeon. Psychiatric history: As above. Substance abuse history: He smokes cigarettes regularly and has had some issues with methamphetamine addiction. Family history: He endorses mental health issues and addiction issues throughout his family. He reports his father from complications of substance abuse. Developmental history: He denies any significant issues with or delivery. No developmental issues, speech therapy, learning support, [employer] for special education classes reported. Psychosocial history: Reports that his parents were together when he was born in his mother is one of the significant supports. He is a heterosexual and has been and . He has a daughter who spends the majority of her time with his mom. Hospital Course Hospital Course During the hospitalization, the patient had routine laboratory studies which were within normal limits except for a few outliers.? Additionally, there was a general medical evaluation which was also within normal limits and revealed no new acute processes.? At the time of discharge, lethality was denied and psychosis was resolving.? Mood and anxiety were well managed.? The patient endorsed a plan to avoid all drugs of abuse and follow up with the aftercare recommendations of the treatment team.? The patient was evaluated and deemed to be absent credible lethality and had achieved the maximum benefit from an inpatient hospitalization, and so was discharged. ?He was agreeable to starting prozac at 20mg daily to target depression and anxiety. Involuntary Hold Information 96 Hour Hold: 96 Hour Involuntary Admission: Yes 96 Hour Hold Ending Date: 03/29/24 96 Hour Hold Ending Time: 14:50 Mental Status Exam MSE Comments: This is a well-nourished well-developed white male with adequate eye contact but in a hospital gown with limited grooming. No abnormal movements except for signficant psychomotor agitation. He was cooperative with exam today in no acute distress. Speech was normal in rate, rhythm and prosody. Mood described as good. His affect was euthymic. Thought process was organized. Thought content: Patient denied any suicidal or homicidal ideation. There were no delusions reported are noted, he denied any auditory or visual hallucinations and did not appear to be responding to internal stimuli. There was no evidence of paranoia. Attention and concentration were intact and memory appeared reliable but none were formally tested. He is alert and oriented ?3. Insight was limited and judgment was fair. His impulse control is fair on discharge. Discharge Data Studies Completed and Pending: Laboratory Results WBC 10.86 10^3/uL (3. 29-11.43) 03/23/24 15:12 RBC 5.69 10^6/uL (3.8 5-5.65) H 03/23/24 15:12 Hgb 17.90 g/dL (11.27 -16.99) H 03/23/24 15:12 Hct 54.2 % (37-53) H 03/23/24 15:12 MCV 95.3 fl (82-101) 03/23/24 15:12 MCH 31.5 pg (27-33) 03/23/24 15:12 MCHC 33.0 g/dL (30-55) 03/23/24 15:12 RDW 11.9 % (12.1-15.1 ) L 03/23/24 15:12 Plt Count 289 10^3/cmm (157 -399) 03/23/24 15:12 MPV 10.2 fL (7.4-10.4 ) 03/23/24 15:12 Neut % (Auto) 64.6 % 03/23/24 15:12 Lymph % (Auto) 24.7 % 03/23/24 15:12 [place] % (Auto) 7.5 % 03/23/24 15:12 Eos % (Auto) 2.2 % 03/23/24 15:12 Baso % (Auto) 0.5 % 03/23/24 15:12 Neut # (Auto) 7.03 10^3/uL (1.8 -7.7) 03/23/24 15:12 Lymph # (Auto) 2.7 10^3/uL (0.8- 4.8) 03/23/24 15:12 [place] # (Auto) 0.8 10^3/uL (0.2- 0.9) 03/23/24 15:12 Eos # (Auto) 0.2 10^3/uL (0.0- 0.8) 03/23/24 15:12 Baso # (Auto) 0.1 10^3/uL (0.0- 0.1) 03/23/24 15:12 Nucleated RBC % (a uto) 0 % 03/23/24 15:12 Nucleated RBCs # 0.0 /100WBC 03/23/24 15:12 Sodium 142 mmol/L (136-1 45) 03/23/24 15:12 Potassium 3.9 mmol/L (3.5-5 .1) 03/23/24 15:12 Chloride 104 mmol/L (98-10 7) 03/23/24 15:12 Carbon Dioxide 21 mmol/L (22-29) L 03/23/24 15:12 Anion Gap 20.9 (5-19) H 03/23/24 15:12 BUN 17 mg/dL (6-20) 03/23/24 15:12 Creatinine 1.0 mg/dL (0.7-1. 2) 03/23/24 15:12 GFR Calculation 89.6 mL/min (90-1 30) L 03/23/24 15:12 Glucose 108 mg/dL (65-115 ) 03/23/24 15:12 Calculated Osmolal ity 296 mOsm/kg (285- 295) H 03/23/24 15:12 Calcium 9.3 mg/dL (8.5-10 .5) 03/23/24 15:12 Total Bilirubin 0.4 mg/dL (0.15-1 .2) 03/23/24 15:12 AST 26 U/L (0-40) 03/23/24 15:12 ALT 33 U/L (0-41) 03/23/24 15:12 Alkaline Phosphata se 76 U/L (40-130) 03/23/24 15:12 Total Protein 7.8 g/dL (6.6-8.7 ) 03/23/24 15:12 Albumin 4.9 g/dL (3.5-5.2 ) 03/23/24 15:12 Globulin 2.9 g/dL (1.3-4.6 ) 03/23/24 15:12 TSH 1.06 uIU/mL (0.27 -4.20) 03/23/24 15:12 Salicylates < 0.3 mg/dL (3-10 ) L 03/23/24 15:12 Acetaminophen < 5.0 ug/mL (10-3 0) L 03/23/24 15:12 Ethyl Alcohol 200 mg/dL (0-10) H 03/23/24 15:12 Vitals: Last Vital Signs Temp 98.5 F 03/25/24 20:00 Pulse 59 L 03/26/24 13:20 Resp 16 03/26/24 13:20 BP 112/68 03/26/24 13:20 Pulse Ox 99 03/26/24 13:20 O2 Del Method Room Air 03/26/24 11:51 Discharge Plan Discharge Patient Disposition: Home Condition: Stable Prescriptions: New fluoxetine [Prozac] 20 mg capsule 20 mg PO QAM Qty: 30 1RF Continued ibuprofen 600 mg tablet 600 mg PO Q6H PRN (Reason: pain) Qty: 30 0RF Discharge Orders: Discharge Order (Routine); Ordered 03/26/24 Ordered By: Yo Lucio Discharge Diet: Usual diet Discharge Activity: Resume usual activity Patient Instructions: Alcohol Abuse, Alcoholism, Alcohol Withdrawal, Fluoxetine (By mouth), Thiamine (By mouth) ([facility] Vitamin B1, Nature's..., Depression (DC), Help Prevent Suicide (DC), Suicide Prevention (DC), Opioid Safety Discharge Attestations NPU Time Spent in Discharge Care*: less than 30 min Specific Discharge Activities: Specific discharge activities: educating patient and documenting/other paperwork Coding Level of Care Code Acute Code for Chg Fwd Diagnoses Alcohol abuse F10.10 Methamphetamine use F15.10 Alcohol intoxication F10.929 Suicidal ideation R45.851 Major depressive disorder, recurrent F33.9 Bereavement Z63.4
[2024-03-26] MEDS: nicotine 2 mg Gum 4 MG BUCCAL (15:22)
== END 2024-03-26 15:43 | disposition home or self-care (01) | DRG 897 ==
LOC: ER 16:53 → NP 18:06
PROVIDERS: Admitting Provider Psychiatry & Neurology Psychiatry; Emergency Provider Emergency Medicine; Visit Provider Psychiatry & Neurology Psychiatry
DX: F10.129 Alcohol abuse with intoxication, unspecified (principal); R45.851 Suicidal ideations; F15.90 Other stimulant use, unspecified, uncomplicated; Y90.7 Blood alcohol level of 200-239 mg/100 ml; F32.9 Major depressive disorder, single episode, unspecified; Z63.4 Disappearance and death of family member
CPT/HCPCS: 36415; 80053; 80307; 84443; 85025; 93005; 96372; 97165; 99285; J2060; J3486